=== PATIENT | female | born 1980 | race Caucasian/White ===

== ENCOUNTER → 2016-10-07 | Outpatient (CLI) | payer MEDICAID, MEDICARE ==
[~2016-10-07] MED LIST: *MAYHAVE; /CELE20CA OR; /ONDA4TA SL; /PANT40TA PO; ACET50TA PO; ACET65TA OR; ADVI200C5 PO; ALESSE PO; ALEV220T26 PO; ALLE25CA OR; BACTRIMDS PO; CELE20TA PO; CITALOPRAM PO; COLA100C2 OR; DEPA500T2 PO; FERR325T OR; FLAG500T PO; LEVO100T5 PO; LEVOTHYROXINE PO; MILKSUS OR; MULTIVIT PO; MYLI40DR OR; NORT25CA2 PO; PERC5TAB8 OR; PROTPAK PO; TRINTAB3 PO; VENTAER INH; VICO5TAB OR; VICODINE PO; VITA100066 PO; [UNRECOGNIZED DRUG - CODE] PO
--- NOTE | 2016-10-07 16:10 | REPMRS ---
Patient History The patient states she has not had a clinical breast exam in over a year. Patient is nulliparous. Family history of breast cancer in paternal aunt at age 50 or over and breast cancer in maternal grandmother at age 50 or over. Digital Mammo Diagnostic Bilateral: October 07, 2016 - Exam #: [id number] Bilateral CC and MLO view(s) were taken. Technologist: Samantha Rubio, Technologist Prior study comparison: August 18, 2015, left breast digital mammo diagnostic unilateral performed at [facility]. August 11, 2015, bilateral digital mammo screening bilat performed at [facility]. FINDINGS: The breast tissue is heterogeneously dense. This may lower the sensitivity of mammography. There is no evidence of cancer on this mammogram. No significant changes when compared with prior studies. ASSESSMENT: BI-RADS/ACR category 2 mammogram. Benign finding(s). Recommendation Routine screening mammogram of both breasts in 1 year (for women over age 40). This mammogram was interpreted with the aid of an FDA-approved computer-aided dectection system. Electronically Signed By: Bib Lambert MD 10/07/16 [id number]
== END ==
LOC: M RAD 10:23
PROVIDERS: ATTEND Internal Medicine
DX: Z80.3 Family history of malignant neoplasm of breast (principal); Z12.4 Encounter for screening for malignant neoplasm of cervix

== ENCOUNTER → 2017-10-09 | Outpatient (CLI) | payer MEDICARE, MEDICAID | LOC: M RAD 13:59 | DX: Z12.31 Encounter for screening mammogram for malignant neoplasm of breast (principal); Z80.3 Family history of malignant neoplasm of breast | CPT/HCPCS: 77067 ==

== ENCOUNTER → 2018-01-14 | Outpatient (REF) | payer MEDICARE, MEDICAID ==
[2018-01-14 13:27] LABS: FERRITIN 18 NG/ML (8-252); IRON (FE) 127 UG/DL (50-170); PERCENT SATURATION 39.1 % (13.2-45.0); TOTAL IRON BINDING CAPACITY 325 UG/DL (250-450)
[2018-01-14 13:33] LABS: VITAMIN B12 LEVEL 563 PG/ML (247-911)
== END ==
LOC: M LAB REF 12:54
DX: D64.9 Anemia, unspecified (principal)
CPT/HCPCS: 83550

== ENCOUNTER 2018-02-09 06:36 | Day surgery (SDC) | payer MEDICARE, MEDICAID ==
[~2018-02-09] VITALS: Ht 165.1 cm; Wt 48.1 kg
[~2018-02-09 06:36] MED LIST changes: +ALBU17IN2 INH; +LEVO25TA5 PO; +METO1TAB32 PO; +PEPT262T2 PO
[2018-02-09] MEDS ORDERED: NS 1,000 ML IV ONE (07:00)
[2018-02-09] MEDS ORDERED: LIDOCAINE 2% INJ 100 MG/5 ML SDV (FOR ANES.) As Ordered ONE (07:12)
[2018-02-09] MEDS ORDERED: PROPOFOL 200 MG/20 ML VIAL As Ordered ONE (07:12)
--- NOTE | 2018-02-09 08:35 | ROOR ---
Patient Name: Eugenie Carrasquillo Procedure Date: 02/09/2018 8:22 AM Date of : 1980 Age: 37 Room: [facility] Gender: Female Note Status: Finalized Procedure: Upper GI endoscopy Indications: Dysphagia Providers: Moy Rivas MD Referring MD: Evie Yung DO Requesting Provider: Medicines: Monitored Anesthesia Care Complications: No immediate complications. Procedure: Pre-Anesthesia Assessment: - The heart rate, respiratory rate, oxygen saturations, blood pressure, adequacy of pulmonary ventilation, and response to care were monitored throughout the procedure. The Endoscope was introduced through the mouth, and advanced to the second part of duodenum. The upper GI endoscopy was accomplished without difficulty. The patient tolerated the procedure well. Findings: The Z-line was regular and was found 35 cm from the incisors. A small hiatal hernia was present. No other significant abnormalities were identified in a careful examination of the stomach. The exam of the duodenum was otherwise normal. Impression: - Z-line regular, 35 cm from the incisors. - Small hiatal hernia. - No specimens collected. - The examination was otherwise normal. Recommendation: - Patient has a contact number available for emergencies. The signs and symptoms of potential delayed complications were discussed with the patient. Return to normal activities tomorrow. Written discharge instructions were provided to the patient. - [place] thick liquids diet. - Discharge patient to home. - Continue present medications. - Return to referring physician. - The findings and recommendations were discussed with the patient's family. Moy Rivas MD Moy Rivas MD 02/09/2018 8:35:19 AM This report has been signed electronically. Number of Addenda: 0 Note Initiated On: 02/09/2018 8:22 AM Estimated Blood Loss: Estimated blood loss: none.
[2018-02-09 08:50] VITALS: BP 117/67
== END 2018-02-09 09:08 | disposition home or self-care (01) ==
LOC: M OPP 06:36
PROVIDERS: ATTEND Internal Medicine Gastroenterology
DX: K44.9 Diaphragmatic hernia without obstruction or gangrene (principal); R13.10 Dysphagia, unspecified

== ENCOUNTER → 2018-04-13 | Outpatient (REF) | payer MEDICARE, MEDICAID ==
[~2018-04-13] MED LIST changes: +TRINTAB PO; -TRINTAB3 PO
== END ==
LOC: M LAB REF 16:11
PROVIDERS: ATTEND Internal Medicine
DX: R30.0 Dysuria (principal)

== ENCOUNTER → 2018-04-22 | Outpatient (REF) | payer MEDICARE, MEDICAID ==
[~2018-04-22] MED LIST changes: +DOXE10CA PO; +FLON1SPR NARES; +LEXA1TAB; +LEXA5TAB13; +MELA3TAB PO; +MELA3TAB49 PO; +PANT40TA3; +RIZA5TAB3; +WOMETAB4 PO
== END ==
LOC: M LAB REF 16:46
PROVIDERS: ATTEND Nurse Practitioner Family
DX: R30.0 Dysuria (principal)

== ENCOUNTER 2018-04-23 04:36 | Emergency (ER) | payer MEDICARE, MEDICAID ==
[~2018-04-23] VITALS: Ht 162.6 cm; Wt 48.2 kg
[~2018-04-23 04:36] MED LIST changes: -DOXE10CA PO; -FLON1SPR NARES; -LEXA1TAB; -LEXA5TAB13; -MELA3TAB PO; -MELA3TAB49 PO; -PANT40TA3; -RIZA5TAB3; -WOMETAB4 PO
[2018-04-23] MEDS ORDERED: methylPREDNISolone INJ 125 MG/2 ML VIAL (J2930) IV ONE (04:45)
[2018-04-23] MEDS ORDERED: FAMOTIDINE IV BAG 20 MG in APPROPRIATE DILUENT 1 EA IV ONE (05:15)
[2018-04-23] MEDS ORDERED: NS 1,000 ML IV ONE (05:15)
[2018-04-23] MEDS ORDERED: FAMOTIDINE INJ 20MG/2ML VIAL (S0028) IVP ONE (05:15)
[2018-04-23] MEDS ORDERED: diphenhydrAMINE INJ 50MG/ML VIAL (J1200) As Ordered ONE (06:17)
[2018-04-23] MEDS ORDERED: diphenhydrAMINE INJ 50MG/ML VIAL (J1200) IV ONE (06:30)
[2018-04-23] MEDS ORDERED: DOXEPIN 25 MG CAP PO ONE (07:45)
[2018-04-23 08:02] LABS: BASO % 0.2 % (0.0-1.0); EOS % 0.3 % (0.0-3.0); HEMATOCRIT 36.6 % (36.0-47.0); HEMOGLOBIN 11.9 g/dl (12.0-15.5); LYMPH % 14.1 % (24.0-44.0); MEAN CORPUSCULAR HEMOGLOBIN 20.6 pg (27.0-33.0); MEAN CORPUSCULAR HGB CONC 32.5 g/dl (32.0-36.5); MEAN CORPUSCULAR VOLUME 63.2 fl (80.0-96.0); MONO # 0.6 10^3/uL (0.0-0.8); MONO % 3.9 % (0.0-5.0); NEUTROPHILS # 11.7 10^3/uL (1.8-7.7); NEUTROPHILS % 81.2 % (36.0-66.0); PLATELET COUNT, AUTOMATED 219 10^3/uL (150-450); RED BLOOD COUNT 5.79 10^6/uL (4.00-5.40); WHITE BLOOD COUNT 14.4 10^3/uL (4.0-10.0)
[2018-04-23 08:18] LABS: ALBUMIN 3.8 GM/DL (3.2-5.2); ALT/SGPT 17 U/L (12-78); BILIRUBIN,DIRECT 0.2 MG/DL (0.0-0.2); BILIRUBIN,TOTAL 0.5 MG/DL (0.2-1.0); BLOOD UREA NITROGEN 12 MG/DL (7-18); C REACTIVE PROTEIN QUANTITATIV 1.23 MG/DL (0.00-0.30); CALCIUM LEVEL 8.4 MG/DL (8.5-10.1); CARBON DIOXIDE LEVEL 21 MEQ/L (21-32); CHLORIDE LEVEL 110 MEQ/L (98-107); CREATININE FOR GFR 0.64 MG/DL (0.55-1.30); FREE T4 1.03 NG/DL (0.76-1.46); GLOMERULAR FILTRATION RATE > 60.0 (>60); GLUCOSE, FASTING 117 MG/DL (70-100); POTASSIUM SERUM 3.9 MEQ/L (3.5-5.1); SODIUM LEVEL 140 MEQ/L (136-145); TOTAL PROTEIN 6.3 GM/DL (6.4-8.2)
[2018-04-23 09:04] LABS: ERYTHROCYTE SEDIMENTATION RATE 2 mm/hr (0-20)
[2018-04-23] MEDS ORDERED: PANT40TA3 (10:23)
[2018-04-23] MEDS ORDERED: RIZA5TAB3 (10:23)
[2018-04-23] MEDS ORDERED: LEXA1TAB (10:23)
[2018-04-23] MEDS ORDERED: WOMETAB4 PO (10:26)
[2018-04-23] MEDS ORDERED: MELA3TAB PO (10:26)
[2018-04-23] MEDS ORDERED: FLON1SPR NARES (10:26)
[2018-04-23] MEDS ORDERED: MELA3TAB49 PO (10:26)
[2018-04-23] MEDS ORDERED: LEXA5TAB13 (10:26)
[2018-04-23] MEDS ORDERED: DOXE10CA PO (11:08)
[2018-04-23 11:16] VITALS: BP 129/59
== END 2018-04-23 13:18 | disposition home or self-care (01) ==
LOC: EDBD 04:36 → M ED 04:36
DX: R21 Rash and other nonspecific skin eruption (principal); R06.02 Shortness of breath; R00.0 Tachycardia, unspecified; T37.8X5A Adverse effect of other specified systemic anti-infectives and antiparasitics, initial encounter; G80.9 Cerebral palsy, unspecified; E03.9 Hypothyroidism, unspecified; Z88.0 Allergy status to penicillin; Z88.2 Allergy status to sulfonamides; Z88.1 Allergy status to other antibiotic agents; Z79.899 Other long term (current) drug therapy
CPT/HCPCS: 80048; 80076; 83735; 84439; 84443; 85025; 85652; 86140; 93041; 94760; 96374; 96375; 99285; J1200; J2930

== ENCOUNTER 2018-06-30 17:15 | Emergency (ER) | payer MEDICAID, MEDICARE ==
[~2018-06-30] VITALS: Ht 134.6 cm; Wt 48.2 kg
[~2018-06-30 17:15] MED LIST changes: -/CELE20CA OR; -/ONDA4TA SL; -/PANT40TA PO; -ACET50TA PO; +CELE1CAP4 OR; +DOXE10CA PO; +FLON1SPR NARES; +LEXA1TAB; +LEXA5TAB13; +MAPA500T17 PO; +MELA3TAB PO; +MELA3TAB49 PO; +ONDA-1 SL; +PANT40TA3; +PROT1TAB2 PO; +RIZA5TAB3 PO; +WOMETAB4 PO
[2018-06-30] MEDS ORDERED: BUSP10TA PO (18:39)
[2018-06-30] MEDS ORDERED: FLUC150T PO (18:39)
[2018-06-30] MEDS ORDERED: NS 1,000 ML IV ONE (19:00)
[2018-06-30 19:38] LABS: BASO # 0.1 10^3/uL (0.0-0.2); BASO % 0.8 % (0.0-1.0); EOS # 0.3 10^3/uL (0.0-0.50); EOS % 3.7 % (0.0-3.0); HEMATOCRIT 35.6 % (36.0-47.0); HEMOGLOBIN 11.5 g/dl (12.0-15.5); LYMPH # 1.8 10^3/uL (1.5-4.5); MEAN CORPUSCULAR HEMOGLOBIN 19.9 pg (27.0-33.0); MEAN CORPUSCULAR HGB CONC 32.3 g/dl (32.0-36.5); MEAN CORPUSCULAR VOLUME 61.7 fl (80.0-96.0); MONO # 0.5 10^3/uL (0.0-0.8); MONO % 6.3 % (0.0-5.0); NEUTROPHILS # 4.8 10^3/uL (1.8-7.7); NEUTROPHILS % 64.9 % (36.0-66.0); PLATELET COUNT, AUTOMATED 242 10^3/uL (150-450); RED BLOOD COUNT 5.77 10^6/uL (4.00-5.40); WHITE BLOOD COUNT 7.3 10^3/uL (4.0-10.0)
[2018-06-30 20:02] LABS: BLOOD UREA NITROGEN 5 MG/DL (7-18); CREATININE FOR GFR 0.59 MG/DL (0.55-1.30); GLUCOSE, FASTING 91 MG/DL (70-100)
[2018-06-30 20:03] LABS: ALBUMIN 4.1 GM/DL (3.2-5.2); ALT/SGPT 14 U/L (12-78); BILIRUBIN,DIRECT 0.2 MG/DL (0.0-0.2); BILIRUBIN,TOTAL 0.5 MG/DL (0.2-1.0); CALCIUM LEVEL 8.7 MG/DL (8.5-10.1); CARBON DIOXIDE LEVEL 26 MEQ/L (21-32); CHLORIDE LEVEL 109 MEQ/L (98-107); GLOMERULAR FILTRATION RATE > 60.0 (>60); LIPASE 90 U/L (73-393); POTASSIUM SERUM 3.9 MEQ/L (3.5-5.1); SODIUM LEVEL 140 MEQ/L (136-145); TOTAL PROTEIN 6.8 GM/DL (6.4-8.2)
--- NOTE | 2018-06-30 21:25 | REPVR ---
EXAM: US Retroperitoneal Limited, Kidneys EXAM DATE/TIME: 06/30/2018 7:52 PM CLINICAL HISTORY: 37 years old, female; Other: Flak pain RT; Additional info: R flank pain TECHNIQUE: Imaging protocol: Real-time ultrasound of the retroperitoneum with image documentation. Examination was focused on the kidneys. COMPARISON: RENAL US 06/30/2013 9:08 AM FINDINGS: Right kidney: The right kidney measures 10.6 x 3.3 x 4.4 cm. The is an echogenic, avascular mass in the lower pole measuring 2.2 x 1.4 x 1.6 cm. A rounded hypoechoic mass in the upper pole noted measuring 0.5 x 0.5 x 0.5 cm. Internal echoes are present. Posterior wall enhancement is seen. An echogenic structure in the hepato- renal space corresponds to a surgical clip noted on CAT scan. No hydronephrosis and the right kidney Left kidney: The left kidney measures 10.9 x 3.3 x 3 cm. No hydronephrosis Bladder: The contour of the bladder is lobulated. Color Doppler examination of the bladder base demonstrates bilateral ureteral jets. IMPRESSION: 1. 2.2 cm echogenic avascular mass in the lower pole. This is increased in size since the previous CT scan in 2014 and suggests the presence of an angiomyolipoma. 2. 5 mm complex cyst in the upper pole of the right kidney. 3. Normal ultrasound of the left kidney. Electronically signed by: Iris Peña On 06/30/2018 21:25:23 PM
[2018-06-30 21:57] LABS: CHLAMYDIA DNA AMPLIFICATION NEGATIVE (NEGATIVE); GC DNA AMPLIFICATION NEGATIVE (NEGATIVE)
[2018-06-30] MEDS ORDERED: FOSFOMYCIN TROMETHAMINE 3 GM POWDER PACKET (MONUROL) PO ONE (22:15)
[2018-06-30 22:43] VITALS: BP 100/58
--- NOTE | 2018-07-07 07:44 | ED PDOC ---
Post-Departure Follow-Up dr carvajal faxed formal report of renal us for fu Pam Morton MD July 07, 2018 07:44
== END 2018-06-30 22:56 | disposition home or self-care (01) ==
LOC: M ED 17:15
DX: N39.0 Urinary tract infection, site not specified (principal); N89.8 Other specified noninflammatory disorders of vagina; N76.0 Acute vaginitis; D50.9 Iron deficiency anemia, unspecified; N28.1 Cyst of kidney, acquired; D30.00 Benign neoplasm of unspecified kidney; G80.9 Cerebral palsy, unspecified; K58.0 Irritable bowel syndrome with diarrhea; K21.9 Gastro-esophageal reflux disease without esophagitis; G43.909 Migraine, unspecified, not intractable, without status migrainosus; E28.2 Polycystic ovarian syndrome; Z87.440 Personal history of urinary (tract) infections; Z87.59 Personal history of other complications of pregnancy, childbirth and the puerperium; Z79.899 Other long term (current) drug therapy; Z88.0 Allergy status to penicillin; Z88.8 Allergy status to other drugs, medicaments and biological substances

== ENCOUNTER → 2018-08-11 | Outpatient (CLI) | payer MEDICARE ==
[~2018-08-11] MED LIST changes: +BUSP10TA PO; +FLUC150T PO
[2018-08-11 12:47] LABS: BASO # 0.1 10^3/uL (0.0-0.2); BASO % 0.8 % (0.0-1.0); EOS # 0.1 10^3/uL (0.0-0.50); EOS % 1.8 % (0.0-3.0); HEMATOCRIT 36.7 % (36.0-47.0); HEMOGLOBIN 11.8 g/dl (12.0-15.5); LYMPH # 1.3 10^3/uL (1.5-4.5); LYMPH % 21.5 % (24.0-44.0); MEAN CORPUSCULAR HEMOGLOBIN 19.9 pg (27.0-33.0); MEAN CORPUSCULAR HGB CONC 32.2 g/dl (32.0-36.5); MEAN CORPUSCULAR VOLUME 61.9 fl (80.0-96.0); MONO # 0.4 10^3/uL (0.0-0.8); MONO % 5.6 % (0.0-5.0); NEUTROPHILS # 4.4 10^3/uL (1.8-7.7); RED BLOOD COUNT 5.93 10^6/uL (4.00-5.40); WHITE BLOOD COUNT 6.2 10^3/uL (4.0-10.0)
[2018-08-11 13:39] LABS: ALBUMIN 3.9 GM/DL (3.2-5.2); ALT/SGPT 19 U/L (12-78); BILIRUBIN,TOTAL 0.8 MG/DL (0.2-1.0); BLOOD UREA NITROGEN 12 MG/DL (7-18); CALCIUM LEVEL 9.1 MG/DL (8.5-10.1); CARBON DIOXIDE LEVEL 24 MEQ/L (21-32); CHLORIDE LEVEL 109 MEQ/L (98-107); CREATININE FOR GFR 0.54 MG/DL (0.55-1.30); GLOMERULAR FILTRATION RATE > 60.0 (>60); GLUCOSE, FASTING 85 MG/DL (70-100); POTASSIUM SERUM 4.1 MEQ/L (3.5-5.1); RHEUMATOID FACTOR QUANT < 10.0 IU/ML (<15.0); SODIUM LEVEL 141 MEQ/L (136-145); TOTAL 25(OH) VITAMIN D 15.1 NG/ML (30.0-100.0)
[2018-08-11 13:44] LABS: ERYTHROCYTE SEDIMENTATION RATE 1 mm/hr (0-20)
[2018-08-12 14:47] LABS: ANTINUCLEAR ANTIBODIES DIRECT Negative (Negative)
== END ==
LOC: M LAB 12:02
PROVIDERS: ATTEND Psychiatry & Neurology Neurology
DX: R51 Headache (principal); R31.0 Gross hematuria
CPT/HCPCS: 36415; 51798; 80053; 81001; 82306; 84443; 85025; 85652; 86038; 86431; 87086; G0463

== ENCOUNTER → 2018-08-11 | Outpatient (REF) | payer MEDICARE, MEDICAID ==
[2018-08-11 20:23] LABS: APPEARANCE, URINE CLEAR (CLEAR); BACTERIA, URINE AUTO NEGATIVE (NEGATIVE); BILIRUBIN, URINE AUTO NEGATIVE (NEGATIVE); BLOOD, URINE BLOOD NEGATIVE (NEGATIVE); COLOR, URINE YELLOW (YELLOW); GLUCOSE, URINE (UA) AUTO NEGATIVE (NEGATIVE); KETONE, URINE AUTO TRACE mg/dL (NEGATIVE); LEUKOCYTE ESTERASE, URINE AUTO TRACE (NEGATIVE); MUCUS, URINE SMALL (NEGATIVE); NITRITE, URINE AUTO NEGATIVE (NEGATIVE); PROTEIN, URINE AUTO NEGATIVE (NEGATIVE); RBC, URINE AUTO 1 /HPF (0-3); SPECIFIC GRAVITY URINE AUTO 1.011 (1.002-1.035); SQUAMOUS EPITHELIAL CELL UR AU 5 /HPF (0-6); UROBILINOGEN, URINE AUTO 0.2 mg/dL (0.0-2.0); WBC, URINE AUTO 4 /HPF (0-3)
== END ==
LOC: M SMT 17:04
PROVIDERS: ATTEND Nurse Practitioner Family
DX: N39.0 Urinary tract infection, site not specified (principal)

== ENCOUNTER → 2018-09-12 | Outpatient (CLI) | payer MEDICAID, MEDICARE ==
[2018-09-12 11:29] LABS: AMORPHOUS SEDIMENT SMALL (NEGATIVE); APPEARANCE, URINE CLOUDY (CLEAR); BACTERIA, URINE AUTO 3+ (NEGATIVE); BILIRUBIN, URINE AUTO NEGATIVE (NEGATIVE); BLOOD, URINE BLOOD 2+ (NEGATIVE); COLOR, URINE YELLOW (YELLOW); GLUCOSE, URINE (UA) AUTO NEGATIVE (NEGATIVE); KETONE, URINE AUTO TRACE mg/dL (NEGATIVE); LEUKOCYTE ESTERASE, URINE AUTO 3+ (NEGATIVE); MUCUS, URINE SMALL (NEGATIVE); NITRITE, URINE AUTO POSITIVE (NEGATIVE); PROTEIN, URINE AUTO 1+ mg/dL (NEGATIVE); RBC, URINE AUTO 17 /HPF (0-3); SPECIFIC GRAVITY URINE AUTO 1.004 (1.002-1.035); SQUAMOUS EPITHELIAL CELL UR AU 5 /HPF (0-6); TRANSITIONAL EPITHELIAL AUTO 1 /HPF; UROBILINOGEN, URINE AUTO 0.2 mg/dL (0.0-2.0); WBC, URINE AUTO TNTC /HPF (0-3)
== END ==
LOC: M LAB 10:47
PROVIDERS: ATTEND Student in an Organized Health Care Education/Training Program
DX: R30.0 Dysuria (principal)

== ENCOUNTER 2018-12-21 09:18 | Outpatient (RCR) | payer MEDICARE ==
[~2018-12-21 09:18] MED LIST changes: -ALBU17IN2 INH; -MELA3TAB PO; +MELA3TAB63 PO; +PROV108A INH; -RIZA5TAB3 PO; +RIZA5TAB52 PO
== END 2018-12-24 ==
LOC: M PT 09:18
PROVIDERS: ATTEND Psychiatry & Neurology Neurology
DX: Z51.89 Encounter for other specified aftercare (principal); M47.22 Other spondylosis with radiculopathy, cervical region

== ENCOUNTER 2019-01-19 15:17 | Outpatient (RCR) | payer MEDICARE | END 2019-01-23 | LOC: M PT 15:17 | PROVIDERS: ATTEND Psychiatry & Neurology Neurology | DX: Z51.89 Encounter for other specified aftercare (principal); M47.22 Other spondylosis with radiculopathy, cervical region ==

== ENCOUNTER 2019-02-08 11:00 | Outpatient (RCR) | payer MEDICARE, MEDICAID | END 2019-02-23 | LOC: M PT 11:00 | PROVIDERS: ATTEND Psychiatry & Neurology Neurology | DX: M54.2 Cervicalgia (principal); G83.9 Paralytic syndrome, unspecified ==

== ENCOUNTER → 2019-02-16 | Outpatient (REF) | payer MEDICARE, MEDICAID ==
[2019-02-16 14:31] LABS: FERRITIN 12 NG/ML (8-252); IRON (FE) 80 UG/DL (50-170); PERCENT SATURATION 29.2 % (13.2-45.0); TOTAL IRON BINDING CAPACITY 274 UG/DL (250-450)
== END ==
LOC: M LAB REF 13:30
PROVIDERS: ATTEND Internal Medicine
DX: D64.9 Anemia, unspecified (principal)

== ENCOUNTER → 2019-07-16 | Outpatient (CLI) | payer MEDICARE, MEDICAID ==
[2019-07-16 16:40] LABS: FREE T4 1.25 NG/DL (0.76-1.46); THYROID STIMULATING HORMONE 2.9 uIU/ML (0.358-3.740)
== END ==
LOC: M LAB 15:41
PROVIDERS: ATTEND Internal Medicine Endocrinology, Diabetes & Metabolism
DX: E04.2 Nontoxic multinodular goiter (principal)

== ENCOUNTER → 2019-07-26 | Outpatient (REF) | payer MEDICARE, MEDICAID ==
[2019-07-27 11:25] LABS: PERCENT SATURATION 36.5 % (13.2-45.0)
== END ==
LOC: M LAB REF 10:37
PROVIDERS: ATTEND Internal Medicine
DX: D64.9 Anemia, unspecified (principal)

== ENCOUNTER 2019-10-22 08:45 | Outpatient (RCR) | payer MEDICARE, MEDICAID ==
[~2019-10-22 08:45] MED LIST changes: +PANT40TA29; -PANT40TA3
== END 2019-10-25 | disposition home or self-care (01) ==
LOC: M PT 08:45
PROVIDERS: ATTEND Physical Medicine & Rehabilitation
DX: G80.1 Spastic diplegic cerebral palsy (principal)

== ENCOUNTER → 2019-11-18 | Outpatient (REF) | payer MEDICARE, MEDICAID ==
[2019-11-18 14:47] LABS: AMORPHOUS SEDIMENT SMALL (NEGATIVE); APPEARANCE, URINE CLOUDY (CLEAR); BACTERIA, URINE AUTO 2+ (NEGATIVE); BILIRUBIN, URINE AUTO NEGATIVE (NEGATIVE); BLOOD, URINE BLOOD NEGATIVE (NEGATIVE); COLOR, URINE YELLOW (YELLOW); GLUCOSE, URINE (UA) AUTO NEGATIVE (NEGATIVE); KETONE, URINE AUTO NEGATIVE (NEGATIVE); LEUKOCYTE ESTERASE, URINE AUTO 3+ (NEGATIVE); MUCUS, URINE SMALL (NEGATIVE); NITRITE, URINE AUTO NEGATIVE (NEGATIVE); PROTEIN, URINE AUTO 1+ mg/dL (NEGATIVE); RBC, URINE AUTO 2 /HPF (0-3); SPECIFIC GRAVITY URINE AUTO 1.017 (1.002-1.035); SQUAMOUS EPITHELIAL CELL UR AU 41 /HPF (0-6); UROBILINOGEN, URINE AUTO 0.2 mg/dL (0.0-2.0); WBC, URINE AUTO 3 /HPF (0-3)
== END ==
LOC: M LAB REF 13:59
PROVIDERS: ATTEND Student in an Organized Health Care Education/Training Program
DX: R30.0 Dysuria (principal)

== ENCOUNTER → 2019-11-24 | Outpatient (RCR) | payer MEDICARE, MEDICAID | LOC: M OT 10-29 08:15 → M PT 10-29 08:17 → M OT 11-03 10:45 → M PT 11-12 08:22 → M OT 11-17 12:52 → M PT 11-17 13:00 → M OT 12:45 | PROVIDERS: ATTEND Physical Medicine & Rehabilitation | DX: G80.0 Spastic quadriplegic cerebral palsy (principal); M25.462 Effusion, left knee; M25.461 Effusion, right knee ==

== ENCOUNTER → 2019-12-02 | Outpatient (REF) | payer MEDICARE, MEDICAID ==
[2019-12-02 13:23] LABS: APPEARANCE, URINE HAZY (CLEAR); BACTERIA, URINE AUTO 1+ (NEGATIVE); BILIRUBIN, URINE AUTO NEGATIVE (NEGATIVE); BLOOD, URINE BLOOD NEGATIVE (NEGATIVE); COLOR, URINE YELLOW (YELLOW); GLUCOSE, URINE (UA) AUTO NEGATIVE (NEGATIVE); KETONE, URINE AUTO NEGATIVE (NEGATIVE); LEUKOCYTE ESTERASE, URINE AUTO 2+ (NEGATIVE); NITRITE, URINE AUTO NEGATIVE (NEGATIVE); PROTEIN, URINE AUTO NEGATIVE (NEGATIVE); RBC, URINE AUTO 0 /HPF (0-3); SPECIFIC GRAVITY URINE AUTO 1.012 (1.002-1.035); SQUAMOUS EPITHELIAL CELL UR AU 4 /HPF (0-6); UROBILINOGEN, URINE AUTO 0.2 mg/dL (0.0-2.0); WBC, URINE AUTO 1 /HPF (0-3)
== END ==
LOC: M LAB REF 12:44
PROVIDERS: ATTEND Student in an Organized Health Care Education/Training Program
DX: R39.9 Unspecified symptoms and signs involving the genitourinary system (principal)

== ENCOUNTER → 2019-12-07 | Outpatient (REF) | payer MEDICARE, MEDICAID ==
[2019-12-08 12:35] LABS: APPEARANCE, URINE HAZY (CLEAR); BACTERIA, URINE AUTO NEGATIVE (NEGATIVE); BILIRUBIN, URINE AUTO NEGATIVE (NEGATIVE); BLOOD, URINE BLOOD NEGATIVE (NEGATIVE); CALCIUM OXALATE CRYSTALS MODERATE; COLOR, URINE YELLOW (YELLOW); GLUCOSE, URINE (UA) AUTO NEGATIVE (NEGATIVE); KETONE, URINE AUTO NEGATIVE (NEGATIVE); LEUKOCYTE ESTERASE, URINE AUTO TRACE (NEGATIVE); MUCUS, URINE SMALL (NEGATIVE); NITRITE, URINE AUTO NEGATIVE (NEGATIVE); PROTEIN, URINE AUTO NEGATIVE (NEGATIVE); RBC, URINE AUTO 1 /HPF (0-3); SPECIFIC GRAVITY URINE AUTO 1.018 (1.002-1.035); SQUAMOUS EPITHELIAL CELL UR AU 1 /HPF (0-6); UROBILINOGEN, URINE AUTO 0.2 mg/dL (0.0-2.0); WBC, URINE AUTO 3 /HPF (0-3)
== END ==
LOC: M LAB REF 11:54
PROVIDERS: ATTEND Student in an Organized Health Care Education/Training Program
DX: R39.9 Unspecified symptoms and signs involving the genitourinary system (principal)

== ENCOUNTER 2019-12-15 13:45 | Outpatient (RCR) | payer MEDICARE, MEDICAID | END 2019-12-25 | LOC: M PT 13:45 | PROVIDERS: ATTEND Physical Medicine & Rehabilitation | DX: Z47.89 Encounter for other orthopedic aftercare (principal); G80.0 Spastic quadriplegic cerebral palsy; M24.551 Contracture, right hip; M25.562 Pain in left knee; M24.561 Contracture, right knee; M24.552 Contracture, left hip ==

== ENCOUNTER → 2019-12-24 | Outpatient (CLI) | payer MEDICARE, MEDICAID ==
--- NOTE | 2019-12-24 09:18 | REP ---
INDICATION: INCOMPLETE EMPYTING OF BLADDER MAIN REG. COMPARISON: 06/30/2018. TECHNIQUE: Real-time sonographic evaluation of the kidneys is performed. FINDINGS: Renal cortical echogenicity pattern is normal bilaterally and contours are smooth. There is no evidence of hydronephrosis or calculus in either kidney. A hyperechoic nodule is seen in the lower pole of the right kidney 2.5 x 1.7 x 2.0 cm essentially unchanged compared to the prior exam. There is a 7 mm cyst in the mid right kidney. The right kidney measures 9.4 x 4.5 x 3.5 cm. Left renal dimensions are 10.5 x 4.9 x 3.6 cm. The urinary bladder contains mild debris and measures 10.6 x 8.6 x 7.0 cm. At the dome of the bladder a small cystic-appearing area along the outer wall appears to connect to the lumen of the bladder and probably represents a small diverticulum measuring 9 x 8 x 14 mm. IMPRESSION: No hydronephrosis. Stable angiomyolipoma lower pole right kidney. Mild debris in the bladder with suspected small diverticulum at the dome of the bladder. <Electronically signed by Bib Lambert > 12/24/19 [id number]
== END ==
LOC: M RAD 08:01
PROVIDERS: ATTEND Student in an Organized Health Care Education/Training Program
DX: D17.71 Benign lipomatous neoplasm of kidney (principal); R33.9 Retention of urine, unspecified; N39.0 Urinary tract infection, site not specified; R31.9 Hematuria, unspecified

== ENCOUNTER → 2019-12-31 | Outpatient (CLI) | payer MEDICARE, MEDICAID ==
--- NOTE | 2019-12-31 10:26 | REP ---
INDICATION: PELVIC PAIN FILE ROOM. COMPARISON: 03/07/2015. TECHNIQUE: Transabdominal scanning was performed. The patient declined transvaginal ultrasound exam. FINDINGS: The patient has had a prior hysterectomy. No free fluid is seen in the cul-de-sac. The bladder measures 7.1 x 6.4 x 8.6 cm. The right ovary has dimensions of 3.6 x 1.5 x 2.1 cm cm. It's Doppler flow is normal with a resistive index of 0.40. The left ovary dimensions are normal as well at 2.9 x 2.0 x 2.8 cm cm. It's Doppler flow was normal with resistive index of 0.57. There is no adnexal mass identified. IMPRESSION: Status post hysterectomy. No mass or free fluid. Ovaries appear normal. <Electronically signed by Bib Lambert > 12/31/19 1023
== END ==
LOC: M RAD 08:39
PROVIDERS: ATTEND Internal Medicine
DX: R10.2 Pelvic and perineal pain (principal)

== ENCOUNTER → 2020-01-14 | Outpatient (REF) | payer MEDICARE, MEDICAID | LOC: M LAB REF 14:49 | PROVIDERS: ATTEND Student in an Organized Health Care Education/Training Program | DX: R39.9 Unspecified symptoms and signs involving the genitourinary system (principal) ==

== ENCOUNTER 2021-07-29 14:57 | Inpatient (IN) | payer MEDICAID, MEDICARE, OTHER ==
[~2021-07-29] VITALS: Ht 162.6 cm; Wt 47.5 kg
[~2021-07-29 14:57] MED LIST changes: -FLUC150T PO; +FLUC150T9 PO; -MELA3TAB63 PO; +MELA3TAB70 PO
[2021-07-29] MEDS ORDERED: ONDANSETRON 4MG/2ML VIAL IV ONE (16:05)
[2021-07-29] MEDS ORDERED: NS 1,000 ML IV ONE ×2 (16:05→16:35)
[2021-07-29 16:23] LABS: BASO % 0.2 % (0.0-1.0); HEMATOCRIT 45.8 % (36.0-47.0); HEMOGLOBIN 14.6 g/dl (12.0-15.5); LYMPH # 0.7 10^3/uL (1.5-5.0); LYMPH % 3.5 % (24.0-44.0); MEAN CORPUSCULAR HEMOGLOBIN 20.1 pg (27.0-33.0); MEAN CORPUSCULAR HGB CONC 31.9 g/dl (32.0-36.5); MEAN CORPUSCULAR VOLUME 63.2 fl (80.0-96.0); MONO # 0.4 10^3/uL (0.0-0.8); NEUTROPHILS # 18.1 10^3/uL (1.5-8.5); NEUTROPHILS % 93.4 % (36.0-66.0); PLATELET COUNT, AUTOMATED 456 10^3/uL (150-450); RED BLOOD COUNT 7.25 10^6/uL (4.00-5.40); WHITE BLOOD COUNT 19.3 10^3/uL (4.0-10.0)
[2021-07-29 16:32] LABS: INR 1.22; PROTHROMBIN TIME 15.8 SECONDS (12.7-14.5)
[2021-07-29 16:33] LABS: PARTIAL THROMBOPLASTIN TIME 31.5 SECONDS (25.9-37.0)
[2021-07-29 16:43] LABS: ALBUMIN 5.3 GM/DL (3.2-5.2); ALT/SGPT 20 U/L (12-78); AMYLASE 145 U/L (25-115); BILIRUBIN,DIRECT 0.4 MG/DL (0.0-0.2); BILIRUBIN,TOTAL 1.3 MG/DL (0.2-1.0); BLOOD UREA NITROGEN 22 MG/DL (7-18); CALCIUM LEVEL 10.7 MG/DL (8.5-10.1); CARBON DIOXIDE LEVEL 9 MEQ/L (21-32); CHLORIDE LEVEL 116 MEQ/L (98-107); CREATININE FOR GFR 1.07 MG/DL (0.55-1.30); GLOMERULAR FILTRATION RATE > 60.0 (>58); GLUCOSE, FASTING 153 MG/DL (70-100); LIPASE 195 U/L (73-393); POTASSIUM SERUM 4.2 MEQ/L (3.5-5.1); SODIUM LEVEL 142 MEQ/L (136-145); TOTAL PROTEIN 9.1 GM/DL (6.4-8.2)
[2021-07-29] MEDS ORDERED: ISOVUE-370 76% 100ML VIAL As Ordered ONE (16:48)
[2021-07-29] MEDS ORDERED: LevoFLOXacin IV 750 MG in IV 1 EA IV ONE (16:50)
[2021-07-29 17:12] LABS: RSV AMPLIFICATION NEGATIVE (NEGATIVE)
[2021-07-29 17:38] LABS: MAGNESIUM LEVEL 1.9 MG/DL (1.8-2.4)
[2021-07-29] MEDS ORDERED: LR 1,000 ML IV SCH (19:25)
[2021-07-29] MEDS ORDERED: ONDANSETRON 4MG/2ML VIAL IV PRN (19:25)
[2021-07-29] MEDS ORDERED: LR 1,000 ML IV ONE (19:25)
[2021-07-29 20:32] LABS: FREE T4 1.14 NG/DL (0.76-1.46); THYROID STIMULATING HORMONE 0.936 uIU/ML (0.358-3.740)
[2021-07-29] MEDS ORDERED: ERGO500029 PO (21:22)
[2021-07-29] MEDS ORDERED: BUSP10TA PO (21:22)
[2021-07-29] MEDS ORDERED: PANT-23 PO (21:22)
[2021-07-29] MEDS ORDERED: MONT10TA97 PO (21:22)
[2021-07-29] MEDS ORDERED: CELE1CAP7 PO (21:22)
[2021-07-29] MEDS ORDERED: TIZA2TA PO (21:22)
[2021-07-29] MEDS ORDERED: HYDR-643 PO (21:22)
[2021-07-29] MEDS ORDERED: GABA-282 PO ×2 (21:22)
[2021-07-29] MEDS ORDERED: OMEP-173 PO (21:22)
[2021-07-29] MEDS ORDERED: AIMO70IN2 INJ (21:22)
[2021-07-29] MEDS ORDERED: HOME MED LIST COMPLETE! XX SCH (21:25)
[2021-07-29] MEDS: PROCHLORPERAZINE 10MG/2ML VIAL (J0780 PER 1) IV PRN (22:15)
[2021-07-30] MEDS ORDERED: LACTATED RINGER'S 1000 ML IV ONE (04:00)
[2021-07-30 06:44] LABS: VENOUS BASE EXCESS -8.9 (-2.0-2.0); VENOUS HCO3 15.4 MEQ/L (23.0-27.0); VENOUS O2 SATURATION 93.4 % (60.0-80.0); VENOUS PARTIAL PRESSURE CO2 27.8 mmHg (38.0-50.0); VENOUS PARTIAL PRESSURE O2 71.3 mmHg (30.0-50.0); VENOUS PH 7.361 UNITS (7.330-7.430); VENOUS STANDARD HCO3 17.2 MEQ/L; VENOUS TOTAL CO2 16.2 MEQ/L (24.0-28.0)
[2021-07-30 07:16] LABS: BASO % 0.1 % (0.0-1.0); HEMATOCRIT 27.4 % (36.0-47.0); LYMPH % 10.1 % (24.0-44.0); MEAN CORPUSCULAR HEMOGLOBIN 20.4 pg (27.0-33.0); MEAN CORPUSCULAR HGB CONC 32.5 g/dl (32.0-36.5); MEAN CORPUSCULAR VOLUME 62.8 fl (80.0-96.0); MONO # 0.8 10^3/uL (0.0-0.8); MONO % 7.5 % (2.0-8.0); NEUTROPHILS # 8.4 10^3/uL (1.5-8.5); NEUTROPHILS % 81.6 % (36.0-66.0); RED BLOOD COUNT 4.36 10^6/uL (4.00-5.40); WHITE BLOOD COUNT 10.2 10^3/uL (4.0-10.0)
[2021-07-30 07:21] LABS: HEMOGLOBIN 8.9 g/dl (12.0-15.5); PLATELET COUNT, AUTOMATED 226 10^3/uL (150-450)
[2021-07-30 07:31] LABS: BLOOD UREA NITROGEN 11 MG/DL (7-18); CALCIUM LEVEL 8.9 MG/DL (8.5-10.1); CARBON DIOXIDE LEVEL 18 MEQ/L (21-32); CHLORIDE LEVEL 122 MEQ/L (98-107); CREATININE FOR GFR 0.59 MG/DL (0.55-1.30); GLOMERULAR FILTRATION RATE > 60.0 (>58); GLUCOSE, FASTING 103 MG/DL (70-100); MAGNESIUM LEVEL 1.8 MG/DL (1.8-2.4); POTASSIUM SERUM 3.5 MEQ/L (3.5-5.1); SODIUM LEVEL 150 MEQ/L (136-145)
[2021-07-30] MEDS: LEVOTHYROXINE 25MCG TABLET (0.025MG) PO SCH (07:53)
[2021-07-30] MEDS: PROCHLORPERAZINE 10MG/2ML VIAL (J0780 PER 1) IV PRN (07:55)
[2021-07-30] MEDS: metroNIDAZOLE 500 MG in IV 1 EA IV SCH ×2 (08:00→18:10)
[2021-07-30] MEDS ORDERED: PANTOPRAZOLE 40MG TAB (PROTONIX) PO SCH (09:00)
[2021-07-30] MEDS: busPIRone 10 MG TAB PO SCH (09:00)
[2021-07-30] MEDS: D5W/0.45% SODIUM CHLORIDE 1,000 ML IV SCH ×2 (09:20→19:20)
[2021-07-30 10:19] LABS: VENOUS HCO3 18.4 MEQ/L (23.0-27.0); VENOUS O2 SATURATION 98.5 % (60.0-80.0); VENOUS PARTIAL PRESSURE O2 135.9 mmHg (30.0-50.0); VENOUS PH 7.377 UNITS (7.330-7.430); VENOUS STANDARD HCO3 19.5 MEQ/L; VENOUS TOTAL CO2 19.4 MEQ/L (24.0-28.0)
[2021-07-30 11:10] LABS: BILIRUBIN,DIRECT 0.3 MG/DL (0.0-0.2); BILIRUBIN,TOTAL 1.2 MG/DL (0.2-1.0); TOTAL PROTEIN 5.6 GM/DL (6.4-8.2)
[2021-07-30 11:10] LABS: BASO % 0.1 % (0.0-1.0); HEMATOCRIT 26.4 % (36.0-47.0); HEMOGLOBIN 8.7 g/dl (12.0-15.5); LYMPH # 1.2 10^3/uL (1.5-5.0); LYMPH % 11.8 % (24.0-44.0); MEAN CORPUSCULAR HEMOGLOBIN 20.5 pg (27.0-33.0); MEAN CORPUSCULAR VOLUME 62.3 fl (80.0-96.0); MONO # 0.8 10^3/uL (0.0-0.8); MONO % 7.6 % (2.0-8.0); NEUTROPHILS # 8.1 10^3/uL (1.5-8.5); PLATELET COUNT, AUTOMATED 213 10^3/uL (150-450); RED BLOOD COUNT 4.24 10^6/uL (4.00-5.40); WHITE BLOOD COUNT 10.1 10^3/uL (4.0-10.0)
[2021-07-30 11:37] LABS: ALBUMIN 3.1 GM/DL (3.2-5.2); ALT/SGPT 13 U/L (12-78); BILIRUBIN,TOTAL 1.2 MG/DL (0.2-1.0); BLOOD UREA NITROGEN 10 MG/DL (7-18); CALCIUM LEVEL 9.1 MG/DL (8.5-10.1); CARBON DIOXIDE LEVEL 20 MEQ/L (21-32); CHLORIDE LEVEL 122 MEQ/L (98-107); CREATININE FOR GFR 0.51 MG/DL (0.55-1.30); GLOMERULAR FILTRATION RATE > 60.0 (>58); GLUCOSE, FASTING 101 MG/DL (70-100); MAGNESIUM LEVEL 1.9 MG/DL (1.8-2.4); POTASSIUM SERUM 3.1 MEQ/L (3.5-5.1); SODIUM LEVEL 150 MEQ/L (136-145); TOTAL PROTEIN 5.1 GM/DL (6.4-8.2)
[2021-07-30] MEDS ORDERED: POTASSIUM CHLORIDE 10MEQ SR TABLET PO ONE (12:00)
[2021-07-30] MEDS: LACTOBACILLUS ACIDOPHILUS CAP (BACID) PO SCH (12:02)
[2021-07-30] MEDS: GABAPENTIN 300 MG CAP PO SCH ×2 (12:03→20:44)
[2021-07-30] MEDS: CelecoXIB (CeleBREX) 100 MG CAP PO SCH (12:03)
[2021-07-30] MEDS: ENOXAPARIN 30MG/0.3ML SYRINGE (J1650 PER 10MG) SC SCH (12:40)
[2021-07-30] MEDS: THIAMINE 200MG 2ML VIAL IV SCH (12:40)
[2021-07-30] MEDS: SCOPOLAMINE 1MG TRANSDERMAL PATCH TOP SCH (12:40)
[2021-07-30 13:59] LABS: PHOSPHORUS LEVEL 1.6 MG/DL (2.5-4.9)
[2021-07-30] MEDS: cefTRIAXone SOD 1 GM in D5W MINI-BAG PLUS 50 ML IV SCH (15:56)
[2021-07-30] MEDS: NEUTRA-PHOS 1.5 GM PACKET PO SCH ×2 (16:00→20:44)
[2021-07-30 16:12] LABS: BLOOD UREA NITROGEN 9 MG/DL (7-18); CARBON DIOXIDE LEVEL 20 MEQ/L (21-32); CHLORIDE LEVEL 120 MEQ/L (98-107); GLOMERULAR FILTRATION RATE > 60.0 (>58); GLUCOSE, FASTING 96 MG/DL (70-100); MAGNESIUM LEVEL 1.8 MG/DL (1.8-2.4); SODIUM LEVEL 148 MEQ/L (136-145)
[2021-07-30] MEDS ORDERED: POTASSIUM PHOSPHATE INJ 20 MMOL in D5W 250 ML IV ONE (17:00)
[2021-07-30] MEDS ORDERED: LevoFLOXacin IV 750 MG in IV 1 EA IV SCH (18:00)
[2021-07-30 18:45] VITALS: BP 111/65
[2021-07-30] MEDS: KCL 10MEQ/100ML SWI (KRUN) 10 MEQ in IV 1 EA IV SCH ×4 (18:58→22:35)
[2021-07-30] MEDS: PANTOPRAZOLE 40MG VIAL IV SCH (19:58)
[2021-07-30] MEDS ORDERED: LORazepam 2 MG/ML VIAL IV ONE (20:00)
[2021-07-30] MEDS ORDERED: PROCHLORPERAZINE 10MG/2ML VIAL (J0780 PER 1) IV PRN (20:10)
[2021-07-30 20:20] LABS: BASO % 0.2 % (0.0-1.0); HEMATOCRIT 26.5 % (36.0-47.0); HEMOGLOBIN 8.9 g/dl (12.0-15.5); LYMPH # 1.1 10^3/uL (1.5-5.0); LYMPH % 13.1 % (24.0-44.0); MEAN CORPUSCULAR HEMOGLOBIN 20.7 pg (27.0-33.0); MEAN CORPUSCULAR HGB CONC 33.6 g/dl (32.0-36.5); MEAN CORPUSCULAR VOLUME 61.8 fl (80.0-96.0); MONO # 0.5 10^3/uL (0.0-0.8); MONO % 5.9 % (2.0-8.0); NEUTROPHILS # 6.8 10^3/uL (1.5-8.5); NEUTROPHILS % 80.2 % (36.0-66.0); PLATELET COUNT, AUTOMATED 200 10^3/uL (150-450); RED BLOOD COUNT 4.29 10^6/uL (4.00-5.40); WHITE BLOOD COUNT 8.5 10^3/uL (4.0-10.0)
[2021-07-30 20:26] VITALS: BP 146/90
[2021-07-30] MEDS: MONTELUKAST 10 MG TAB PO SCH (20:43)
[2021-07-30 20:46] LABS: BLOOD UREA NITROGEN 8 MG/DL (7-18); CALCIUM LEVEL 8.9 MG/DL (8.5-10.1); CARBON DIOXIDE LEVEL 21 MEQ/L (21-32); CHLORIDE LEVEL 117 MEQ/L (98-107); CREATININE FOR GFR 0.46 MG/DL (0.55-1.30); GLOMERULAR FILTRATION RATE > 60.0 (>58); GLUCOSE, FASTING 90 MG/DL (70-100); MAGNESIUM LEVEL 1.7 MG/DL (1.8-2.4); PHOSPHORUS LEVEL 1.1 MG/DL (2.5-4.9); POTASSIUM SERUM 3.1 MEQ/L (3.5-5.1); SODIUM LEVEL 148 MEQ/L (136-145)
[2021-07-30] MEDS ORDERED: OMEPRAZOLE 20MG CAP PO SCH (21:00)
[2021-07-30] MEDS: MAG SULF 1GM/100ML (MAG RUN) 1 GM in IV 1 EA IV SCH (23:56)
[2021-07-31] VITALS (7 sets, daily range): BP systolic 103–142; BP diastolic 58–78; PULSE 80
[2021-07-31] MEDS: MAG SULF 1GM/100ML (MAG RUN) 1 GM in IV 1 EA IV SCH (00:53)
[2021-07-31 00:59] LABS: BLOOD UREA NITROGEN 7 MG/DL (7-18); CALCIUM LEVEL 8.2 MG/DL (8.5-10.1); CARBON DIOXIDE LEVEL 24 MEQ/L (21-32); CHLORIDE LEVEL 113 MEQ/L (98-107); GLOMERULAR FILTRATION RATE > 60.0 (>58); GLUCOSE, FASTING 98 MG/DL (70-100); MAGNESIUM LEVEL 1.6 MG/DL (1.8-2.4); PHOSPHORUS LEVEL 3.7 MG/DL (2.5-4.9); SODIUM LEVEL 143 MEQ/L (136-145)
[2021-07-31 05:04] LABS: CREATININE,RANDOM URINE 79.1 MG/DL; POTASSIUM RANDOM URINE 37.2 MEQ/L
[2021-07-31] MEDS: LEVOTHYROXINE 25MCG TABLET (0.025MG) PO SCH (06:09)
[2021-07-31] MEDS: D5W/0.45% SODIUM CHLORIDE 1,000 ML IV SCH ×3 (06:09→23:40)
[2021-07-31] MEDS: ENOXAPARIN 30MG/0.3ML SYRINGE (J1650 PER 10MG) SC SCH (08:07)
[2021-07-31] MEDS: PANTOPRAZOLE 40MG VIAL IV SCH ×2 (08:07→20:28)
[2021-07-31] MEDS: metroNIDAZOLE 500 MG in IV 1 EA IV SCH ×5 (08:07→23:49)
[2021-07-31] MEDS: GABAPENTIN 300 MG CAP PO SCH ×2 (08:11→19:59)
[2021-07-31] MEDS: LACTOBACILLUS ACIDOPHILUS CAP (BACID) PO SCH ×2 (08:16→08:19)
[2021-07-31] MEDS: CelecoXIB (CeleBREX) 100 MG CAP PO SCH ×2 (08:16→08:19)
[2021-07-31 08:32] LABS: BASO % 0.3 % (0.0-1.0); EOS % 0.2 % (0.0-3.0); HEMATOCRIT 26.1 % (36.0-47.0); HEMOGLOBIN 8.6 g/dl (12.0-15.5); LYMPH # 1.3 10^3/uL (1.5-5.0); LYMPH % 21.3 % (24.0-44.0); MEAN CORPUSCULAR HEMOGLOBIN 20.3 pg (27.0-33.0); MEAN CORPUSCULAR VOLUME 61.7 fl (80.0-96.0); MONO # 0.5 10^3/uL (0.0-0.8); NEUTROPHILS # 4.2 10^3/uL (1.5-8.5); NEUTROPHILS % 69.9 % (36.0-66.0); PLATELET COUNT, AUTOMATED 174 10^3/uL (150-450); RED BLOOD COUNT 4.23 10^6/uL (4.00-5.40)
[2021-07-31] MEDS ORDERED: K-PHOS NEUTRAL 250MG TABLET (SOD.PHOSPHATE/POT.PHOSPHATE) PO SCH (09:00)
[2021-07-31 09:16] LABS: ALT/SGPT 19 U/L (12-78); BILIRUBIN,TOTAL 0.9 MG/DL (0.2-1.0); BLOOD UREA NITROGEN 5 MG/DL (7-18); CALCIUM LEVEL 8.3 MG/DL (8.5-10.1); CARBON DIOXIDE LEVEL 26 MEQ/L (21-32); CHLORIDE LEVEL 112 MEQ/L (98-107); CREATININE FOR GFR 0.36 MG/DL (0.55-1.30); GLOMERULAR FILTRATION RATE > 60.0 (>58); GLUCOSE, FASTING 105 MG/DL (70-100); MAGNESIUM LEVEL 2.1 MG/DL (1.8-2.4); POTASSIUM SERUM 2.7 MEQ/L (3.5-5.1); SODIUM LEVEL 144 MEQ/L (136-145); TOTAL PROTEIN 5.1 GM/DL (6.4-8.2)
[2021-07-31] MEDS ORDERED: POTASSIUM CHLORIDE 10% LIQ 20 MEQ/15 ML UDC PO ONE (09:35)
[2021-07-31] MEDS: KCL 10MEQ/100ML SWI (KRUN) 10 MEQ in IV 1 EA IV SCH ×3 (09:54→11:49)
[2021-07-31] MEDS: cefTRIAXone SOD 1 GM in D5W MINI-BAG PLUS 50 ML IV SCH (09:54)
[2021-07-31] MEDS ORDERED: POTASSIUM PHOSPHATE INJ 30 MMOL in D5W 500 ML IV ONE (12:00)
[2021-07-31] MEDS: THIAMINE 200MG 2ML VIAL IV SCH (12:41)
[2021-07-31] MEDS: MONTELUKAST 10 MG TAB PO SCH (19:59)
[2021-07-31 20:17] LABS: BLOOD UREA NITROGEN 3 MG/DL (7-18); CALCIUM LEVEL 7.9 MG/DL (8.5-10.1); CARBON DIOXIDE LEVEL 30 MEQ/L (21-32); CHLORIDE LEVEL 109 MEQ/L (98-107); CREATININE FOR GFR 0.53 MG/DL (0.55-1.30); GLOMERULAR FILTRATION RATE > 60.0 (>58); GLUCOSE, FASTING 103 MG/DL (70-100); SODIUM LEVEL 142 MEQ/L (136-145)
[2021-07-31] MEDS: LORazepam 2 MG/ML VIAL IV PRN (20:29)
[2021-07-31] MEDS ORDERED: KCL 10MEQ/100ML SWI (KRUN) 10 MEQ in IV 1 EA IV ONE (22:30)
[2021-08-01] VITALS: BP 129/81
[2021-08-01 04:00] VITALS: BP 104/55
[2021-08-01] MEDS: LEVOTHYROXINE 25MCG TABLET (0.025MG) PO SCH (05:30)
[2021-08-01 06:18] LABS: BASO % 0.4 % (0.0-1.0); EOS # 0.1 10^3/uL (0.0-0.5); EOS % 1.6 % (0.0-3.0); HEMATOCRIT 27.5 % (36.0-47.0); HEMOGLOBIN 9.2 g/dl (12.0-15.5); LYMPH # 1.1 10^3/uL (1.5-5.0); LYMPH % 19.5 % (24.0-44.0); MEAN CORPUSCULAR HGB CONC 33.5 g/dl (32.0-36.5); MEAN CORPUSCULAR VOLUME 62.6 fl (80.0-96.0); MONO # 0.5 10^3/uL (0.0-0.8); MONO % 8.2 % (2.0-8.0); NEUTROPHILS # 3.8 10^3/uL (1.5-8.5); NEUTROPHILS % 70.1 % (36.0-66.0); PLATELET COUNT, AUTOMATED 157 10^3/uL (150-450); RED BLOOD COUNT 4.39 10^6/uL (4.00-5.40); WHITE BLOOD COUNT 5.5 10^3/uL (4.0-10.0)
[2021-08-01 06:51] LABS: ALBUMIN 3.2 GM/DL (3.2-5.2); ALT/SGPT 19 U/L (12-78); BILIRUBIN,TOTAL 0.8 MG/DL (0.2-1.0); BLOOD UREA NITROGEN 3 MG/DL (7-18); CALCIUM LEVEL 8.5 MG/DL (8.5-10.1); CARBON DIOXIDE LEVEL 30 MEQ/L (21-32); CHLORIDE LEVEL 110 MEQ/L (98-107); CREATININE FOR GFR 0.36 MG/DL (0.55-1.30); GLOMERULAR FILTRATION RATE > 60.0 (>58); GLUCOSE, FASTING 109 MG/DL (70-100); MAGNESIUM LEVEL 2.1 MG/DL (1.8-2.4); POTASSIUM SERUM 3.2 MEQ/L (3.5-5.1); SODIUM LEVEL 145 MEQ/L (136-145); TOTAL PROTEIN 5.3 GM/DL (6.4-8.2)
[2021-08-01 07:25] VITALS: BP 118/74
[2021-08-01] MEDS ORDERED: POTASSIUM CHLORIDE 10% LIQ 20 MEQ/15 ML UDC PO ONE (08:30)
[2021-08-01] MEDS: KCL 10MEQ/100ML SWI (KRUN) 10 MEQ in IV 1 EA IV SCH ×4 (08:55→14:15)
[2021-08-01] MEDS: metroNIDAZOLE 500 MG in IV 1 EA IV SCH ×2 (08:56→17:20)
[2021-08-01] MEDS: PANTOPRAZOLE 40MG VIAL IV SCH ×2 (08:56→21:43)
[2021-08-01] MEDS: ENOXAPARIN 30MG/0.3ML SYRINGE (J1650 PER 10MG) SC SCH (08:56)
[2021-08-01] MEDS: LACTOBACILLUS ACIDOPHILUS CAP (BACID) PO SCH (09:00)
[2021-08-01] MEDS: CelecoXIB (CeleBREX) 100 MG CAP PO SCH (09:00)
[2021-08-01] MEDS: GABAPENTIN 300 MG CAP PO SCH ×2 (09:00→21:43)
[2021-08-01] MEDS ORDERED: ISOVUE-370 76% 100ML VIAL As Ordered ONE (10:58)
[2021-08-01] MEDS: D5W/0.45% SODIUM CHLORIDE 1,000 ML IV SCH ×2 (11:15→23:20)
[2021-08-01 12:26] VITALS: BP 115/59
[2021-08-01] MEDS: cefTRIAXone SOD 1 GM in D5W MINI-BAG PLUS 50 ML IV SCH (12:35)
[2021-08-01] MEDS: THIAMINE 200MG 2ML VIAL IV SCH (12:35)
[2021-08-01] MEDS ORDERED: LORazepam 2 MG/ML VIAL As Ordered ONE (14:36)
[2021-08-01] MEDS: LORazepam 2 MG/ML VIAL IV PRN (14:46)
[2021-08-01 15:58] VITALS: BP 114/77
[2021-08-01 20:00] VITALS: BP 118/79
[2021-08-01] MEDS: MONTELUKAST 10 MG TAB PO SCH (21:43)
[2021-08-02] VITALS: BP 125/58
[2021-08-02] MEDS: metroNIDAZOLE 500 MG in IV 1 EA IV SCH ×3 (00:56→16:36)
[2021-08-02 04:00] VITALS: BP 111/61
[2021-08-02] MEDS: CAPSAICIN 0.025% CR 60 GM TOP PRN ×2 (04:28→13:06)
[2021-08-02 05:51] LABS: BASO % 0.4 % (0.0-1.0); EOS # 0.2 10^3/uL (0.0-0.5); EOS % 3.4 % (0.0-3.0); HEMATOCRIT 28.4 % (36.0-47.0); HEMOGLOBIN 9.3 g/dl (12.0-15.5); LYMPH # 1.3 10^3/uL (1.5-5.0); LYMPH % 28.4 % (24.0-44.0); MEAN CORPUSCULAR HEMOGLOBIN 20.7 pg (27.0-33.0); MEAN CORPUSCULAR HGB CONC 32.7 g/dl (32.0-36.5); MEAN CORPUSCULAR VOLUME 63.1 fl (80.0-96.0); MONO # 0.5 10^3/uL (0.0-0.8); NEUTROPHILS # 2.6 10^3/uL (1.5-8.5); NEUTROPHILS % 56.6 % (36.0-66.0); PLATELET COUNT, AUTOMATED 146 10^3/uL (150-450); WHITE BLOOD COUNT 4.7 10^3/uL (4.0-10.0)
[2021-08-02] MEDS: LEVOTHYROXINE 25MCG TABLET (0.025MG) PO SCH (06:00)
[2021-08-02 06:20] LABS: ALBUMIN 3.1 GM/DL (3.2-5.2); ALT/SGPT 22 U/L (12-78); BILIRUBIN,TOTAL 0.6 MG/DL (0.2-1.0); BLOOD UREA NITROGEN 2 MG/DL (7-18); CALCIUM LEVEL 8.5 MG/DL (8.5-10.1); CARBON DIOXIDE LEVEL 26 MEQ/L (21-32); CHLORIDE LEVEL 111 MEQ/L (98-107); CREATININE FOR GFR 0.37 MG/DL (0.55-1.30); GLOMERULAR FILTRATION RATE > 60.0 (>58); GLUCOSE, FASTING 113 MG/DL (70-100); MAGNESIUM LEVEL 1.8 MG/DL (1.8-2.4); POTASSIUM SERUM 2.9 MEQ/L (3.5-5.1); SODIUM LEVEL 143 MEQ/L (136-145); TOTAL PROTEIN 5.5 GM/DL (6.4-8.2)
[2021-08-02] MEDS ORDERED: POTASSIUM CHLORIDE 10% LIQ 20 MEQ/15 ML UDC PO ONE ×2 (06:25→15:50)
[2021-08-02] MEDS: LORazepam 2 MG/ML VIAL IV PRN (07:07)
[2021-08-02 08:00] VITALS: BP 101/58
[2021-08-02] MEDS: GABAPENTIN 300 MG CAP PO SCH ×2 (09:00→20:34)
[2021-08-02] MEDS: PANTOPRAZOLE 40MG VIAL IV SCH ×2 (09:02→20:35)
[2021-08-02] MEDS: KCL 10MEQ/100ML SWI (KRUN) 10 MEQ in IV 1 EA IV SCH ×5 (09:02→20:35)
[2021-08-02] MEDS: SCOPOLAMINE 1MG TRANSDERMAL PATCH TOP SCH (09:03)
[2021-08-02] MEDS: LACTOBACILLUS ACIDOPHILUS CAP (BACID) PO SCH (09:03)
[2021-08-02] MEDS: ENOXAPARIN 30MG/0.3ML SYRINGE (J1650 PER 10MG) SC SCH (09:04)
[2021-08-02] MEDS: THIAMINE 200MG 2ML VIAL IV SCH (12:03)
[2021-08-02] MEDS: cefTRIAXone SOD 1 GM in D5W MINI-BAG PLUS 50 ML IV SCH (12:03)
[2021-08-02 12:15] VITALS: BP 116/69
[2021-08-02 12:43] LABS: MAGNESIUM LEVEL 1.9 MG/DL (1.8-2.4)
[2021-08-02] MEDS: D5W/0.45% SODIUM CHLORIDE 1,000 ML IV SCH (14:37)
[2021-08-02 15:31] VITALS: BP 126/80
[2021-08-02] MEDS ORDERED: GI COCKTAIL 50ML BTL(HYOSCYAMINE/MAALOX/LIDOCAINE VISCOUS)(1:3:1) PO PRN (15:50)
[2021-08-02 16:52] LABS: CK-MB VALUE MASS 1.8 NG/ML (<3.6); MB/CK RELATIVE INDEX 1.82 (< OR =4)
[2021-08-02] MEDS ORDERED: POTASSIUM CHLORIDE 10MEQ SR TABLET PO ONE (17:00)
[2021-08-02] MEDS: METOCLOPRAMIDE INJ 10MG/2ML VIAL (J2765 PER 1) IV PRN (18:52)
[2021-08-02 20:00] VITALS: BP 131/89
[2021-08-02] MEDS: MONTELUKAST 10 MG TAB PO SCH (20:34)
[2021-08-03] VITALS: BP 105/71
[2021-08-03 00:23] LABS: HEMATOCRIT 28.7 % (36.0-47.0); HEMOGLOBIN 9.4 g/dl (12.0-15.5)
[2021-08-03] MEDS: metroNIDAZOLE 500 MG in IV 1 EA IV SCH ×4 (01:06→23:35)
[2021-08-03 04:00] VITALS: BP 107/62
[2021-08-03 05:24] LABS: BASO % 0.7 % (0.0-1.0); EOS # 0.3 10^3/uL (0.0-0.5); EOS % 4.8 % (0.0-3.0); HEMATOCRIT 29.2 % (36.0-47.0); HEMOGLOBIN 9.4 g/dl (12.0-15.5); LYMPH # 1.2 10^3/uL (1.5-5.0); LYMPH % 21.9 % (24.0-44.0); MEAN CORPUSCULAR HEMOGLOBIN 20.4 pg (27.0-33.0); MEAN CORPUSCULAR HGB CONC 32.2 g/dl (32.0-36.5); MEAN CORPUSCULAR VOLUME 63.5 fl (80.0-96.0); MONO # 0.5 10^3/uL (0.0-0.8); MONO % 9.4 % (2.0-8.0); NEUTROPHILS # 3.5 10^3/uL (1.5-8.5); NEUTROPHILS % 62.8 % (36.0-66.0); PLATELET COUNT, AUTOMATED 152 10^3/uL (150-450); WHITE BLOOD COUNT 5.6 10^3/uL (4.0-10.0)
[2021-08-03] MEDS: METOCLOPRAMIDE INJ 10MG/2ML VIAL (J2765 PER 1) IV PRN (05:40)
[2021-08-03] MEDS: LEVOTHYROXINE 25MCG TABLET (0.025MG) PO SCH (05:40)
[2021-08-03 05:47] LABS: ALBUMIN 3.1 GM/DL (3.2-5.2); ALT/SGPT 31 U/L (12-78); BILIRUBIN,TOTAL 0.6 MG/DL (0.2-1.0); BLOOD UREA NITROGEN 3 MG/DL (7-18); CARBON DIOXIDE LEVEL 27 MEQ/L (21-32); CHLORIDE LEVEL 113 MEQ/L (98-107); CREATININE FOR GFR 0.47 MG/DL (0.55-1.30); GLOMERULAR FILTRATION RATE > 60.0 (>58); GLUCOSE, FASTING 98 MG/DL (70-100); MAGNESIUM LEVEL 1.8 MG/DL (1.8-2.4); POTASSIUM SERUM 3.9 MEQ/L (3.5-5.1); SODIUM LEVEL 142 MEQ/L (136-145); TOTAL PROTEIN 5.1 GM/DL (6.4-8.2)
[2021-08-03] MEDS: GABAPENTIN 300 MG CAP PO SCH ×2 (07:36→21:20)
[2021-08-03] MEDS: busPIRone 10 MG TAB PO SCH ×2 (07:46→21:00)
[2021-08-03] MEDS: PANTOPRAZOLE 40MG VIAL IV SCH ×2 (08:00→21:19)
[2021-08-03] MEDS: ENOXAPARIN 30MG/0.3ML SYRINGE (J1650 PER 10MG) SC SCH (08:00)
[2021-08-03 08:03] VITALS: BP 119/75
[2021-08-03] MEDS: LACTOBACILLUS ACIDOPHILUS CAP (BACID) PO SCH (09:00)
[2021-08-03] MEDS ORDERED: E-Z-HD 98% w/w 340GM SUSP BTL As Ordered ONE (09:27)
[2021-08-03] MEDS ORDERED: E-Z-GAS II EFFERVESCENT PACKET (SODIUM BICARB./CITRIC ACID/SIMETHICONE) As Ordered ONE (09:27)
[2021-08-03] MEDS ORDERED: E-Z-PAQUE 96% w/w SUSP 176GM BTL As Ordered ONE (09:27)
[2021-08-03] MEDS: THIAMINE 200MG 2ML VIAL IV SCH (12:00)
[2021-08-03 12:19] LABS: C REACTIVE PROTEIN QUANTITATIV < 0.30 MG/DL (0.00-0.30)
[2021-08-03 15:59] VITALS: BP 113/76
[2021-08-03] MEDS: cefTRIAXone SOD 1 GM in D5W MINI-BAG PLUS 50 ML IV SCH (16:05)
[2021-08-03 20:00] VITALS: BP 116/67
[2021-08-03] MEDS: MONTELUKAST 10 MG TAB PO SCH (21:20)
[2021-08-03] MEDS: CAPSAICIN 0.025% CR 60 GM TOP PRN (21:21)
[2021-08-04] VITALS: BP 98/64
[2021-08-04 04:00] VITALS: BP 112/65
[2021-08-04] MEDS: LEVOTHYROXINE 25MCG TABLET (0.025MG) PO SCH (05:29)
[2021-08-04] MEDS: CAPSAICIN 0.025% CR 60 GM TOP PRN ×2 (05:30→20:47)
[2021-08-04 05:31] LABS: BASO % 0.6 % (0.0-1.0); EOS # 0.3 10^3/uL (0.0-0.5); EOS % 5.1 % (0.0-3.0); HEMOGLOBIN 9.8 g/dl (12.0-15.5); LYMPH # 1.7 10^3/uL (1.5-5.0); LYMPH % 26.7 % (24.0-44.0); MEAN CORPUSCULAR HEMOGLOBIN 20.5 pg (27.0-33.0); MEAN CORPUSCULAR HGB CONC 32.7 g/dl (32.0-36.5); MEAN CORPUSCULAR VOLUME 62.9 fl (80.0-96.0); MONO # 0.6 10^3/uL (0.0-0.8); MONO % 10.1 % (2.0-8.0); NEUTROPHILS # 3.5 10^3/uL (1.5-8.5); PLATELET COUNT, AUTOMATED 154 10^3/uL (150-450); RED BLOOD COUNT 4.77 10^6/uL (4.00-5.40); WHITE BLOOD COUNT 6.2 10^3/uL (4.0-10.0)
[2021-08-04 06:01] LABS: ALBUMIN 3.2 GM/DL (3.2-5.2); ALT/SGPT 43 U/L (12-78); BILIRUBIN,TOTAL 0.5 MG/DL (0.2-1.0); BLOOD UREA NITROGEN 5 MG/DL (7-18); CALCIUM LEVEL 8.9 MG/DL (8.5-10.1); CARBON DIOXIDE LEVEL 29 MEQ/L (21-32); CHLORIDE LEVEL 109 MEQ/L (98-107); CREATININE FOR GFR 0.48 MG/DL (0.55-1.30); GLOMERULAR FILTRATION RATE > 60.0 (>58); GLUCOSE, FASTING 89 MG/DL (70-100); MAGNESIUM LEVEL 2.1 MG/DL (1.8-2.4); POTASSIUM SERUM 3.8 MEQ/L (3.5-5.1); SODIUM LEVEL 142 MEQ/L (136-145); TOTAL PROTEIN 5.6 GM/DL (6.4-8.2)
[2021-08-04 07:13] VITALS: BP 124/57
[2021-08-04] MEDS: LACTOBACILLUS ACIDOPHILUS CAP (BACID) PO SCH (09:15)
[2021-08-04] MEDS: metroNIDAZOLE 500 MG in IV 1 EA IV SCH ×2 (09:15→15:21)
[2021-08-04] MEDS: PANTOPRAZOLE 40MG VIAL IV SCH ×2 (09:16→20:26)
[2021-08-04] MEDS: GABAPENTIN 300 MG CAP PO SCH ×2 (09:16→20:26)
[2021-08-04] MEDS: ENOXAPARIN 30MG/0.3ML SYRINGE (J1650 PER 10MG) SC SCH (09:16)
[2021-08-04] MEDS: busPIRone 10 MG TAB PO SCH ×3 (09:16→20:30)
[2021-08-04] MEDS: cefTRIAXone SOD 1 GM in D5W MINI-BAG PLUS 50 ML IV SCH (10:27)
[2021-08-04] MEDS: DOCUSATE SODIUM 100MG CAPSULE PO SCH ×2 (11:24→20:27)
[2021-08-04] MEDS: BISACODYL 10 MG SUPP PR SCH ×2 (11:24→20:27)
[2021-08-04] MEDS: THIAMINE 200MG 2ML VIAL IV SCH (11:24)
[2021-08-04] MEDS: SENNA 8.6 MG TAB (SENOKOT) PO SCH ×2 (11:24→20:27)
[2021-08-04 11:46] VITALS: BP 110/68
[2021-08-04 20:00] VITALS: BP 106/80
[2021-08-04] MEDS: MONTELUKAST 10 MG TAB PO SCH (20:27)
[2021-08-05] MEDS: metroNIDAZOLE 500 MG in IV 1 EA IV SCH ×2 (00:12→08:29)
[2021-08-05 04:00] VITALS: BP 107/68
[2021-08-05 05:54] LABS: BASO % 0.4 % (0.0-1.0); EOS # 0.3 10^3/uL (0.0-0.5); EOS % 4.4 % (0.0-3.0); HEMATOCRIT 30.2 % (36.0-47.0); HEMOGLOBIN 9.9 g/dl (12.0-15.5); LYMPH # 1.9 10^3/uL (1.5-5.0); LYMPH % 26.8 % (24.0-44.0); MEAN CORPUSCULAR HEMOGLOBIN 20.7 pg (27.0-33.0); MEAN CORPUSCULAR HGB CONC 32.8 g/dl (32.0-36.5); MEAN CORPUSCULAR VOLUME 63.2 fl (80.0-96.0); MONO # 0.7 10^3/uL (0.0-0.8); NEUTROPHILS # 4.3 10^3/uL (1.5-8.5); NEUTROPHILS % 58.8 % (36.0-66.0); PLATELET COUNT, AUTOMATED 169 10^3/uL (150-450); RED BLOOD COUNT 4.78 10^6/uL (4.00-5.40); WHITE BLOOD COUNT 7.2 10^3/uL (4.0-10.0)
[2021-08-05] MEDS: LEVOTHYROXINE 25MCG TABLET (0.025MG) PO SCH (06:00)
[2021-08-05 06:24] LABS: ALBUMIN 3.2 GM/DL (3.2-5.2); ALT/SGPT 51 U/L (12-78); BILIRUBIN,TOTAL 0.6 MG/DL (0.2-1.0); BLOOD UREA NITROGEN 6 MG/DL (7-18); CALCIUM LEVEL 9.1 MG/DL (8.5-10.1); CARBON DIOXIDE LEVEL 28 MEQ/L (21-32); CHLORIDE LEVEL 109 MEQ/L (98-107); CREATININE FOR GFR 0.52 MG/DL (0.55-1.30); GLOMERULAR FILTRATION RATE > 60.0 (>58); GLUCOSE, FASTING 95 MG/DL (70-100); MAGNESIUM LEVEL 2.1 MG/DL (1.8-2.4); POTASSIUM SERUM 3.6 MEQ/L (3.5-5.1); SODIUM LEVEL 143 MEQ/L (136-145); TOTAL PROTEIN 5.5 GM/DL (6.4-8.2)
[2021-08-05 07:27] VITALS: BP 102/67
[2021-08-05] MEDS: LACTOBACILLUS ACIDOPHILUS CAP (BACID) PO SCH (08:30)
[2021-08-05] MEDS: SENNA 8.6 MG TAB (SENOKOT) PO SCH (08:30)
[2021-08-05] MEDS: GABAPENTIN 300 MG CAP PO SCH (08:30)
[2021-08-05] MEDS: PANTOPRAZOLE 40MG VIAL IV SCH (08:30)
[2021-08-05] MEDS: DOCUSATE SODIUM 100MG CAPSULE PO SCH (08:30)
[2021-08-05] MEDS: busPIRone 10 MG TAB PO SCH (08:30)
[2021-08-05] MEDS: ENOXAPARIN 30MG/0.3ML SYRINGE (J1650 PER 10MG) SC SCH (08:31)
[2021-08-05] MEDS: BISACODYL 10 MG SUPP PR SCH (08:32)
[2021-08-05] MEDS: SCOPOLAMINE 1MG TRANSDERMAL PATCH TOP SCH (08:32)
[2021-08-05] MEDS: cefTRIAXone SOD 1 GM in D5W MINI-BAG PLUS 50 ML IV SCH (09:51)
[2021-08-05] MEDS: THIAMINE 200MG 2ML VIAL IV SCH (11:58)
[2021-08-05] MEDS ORDERED: BISA10SU PR (12:55)
[2021-08-05] MEDS ORDERED: RISATAB3 PO (12:55)
[2021-08-05] MEDS ORDERED: PANT-23 PO (12:55)
[2021-08-05] MEDS ORDERED: COLA100C5 PO (12:55)
[2021-08-05] MEDS ORDERED: REGL10TA6 PO (13:07)
== END 2021-08-05 14:20 | disposition home health service (06) | DRG 391 ==
LOC: M ED 14:57 → M ED INP 19:25 → M PCU 19:25 → ENRESERV 07-30 17:12 → M PCU 07-30 18:38
PROVIDERS: ADMIT Family Medicine; ATTEND Family Medicine
DX: A08.4 Viral intestinal infection, unspecified (principal); G80.0 Spastic quadriplegic cerebral palsy; E87.2 Acidosis; E87.0 Hyperosmolality and hypernatremia; E86.0 Dehydration; G40.909 Epilepsy, unspecified, not intractable, without status epilepticus; K21.9 Gastro-esophageal reflux disease without esophagitis; F41.9 Anxiety disorder, unspecified; E28.2 Polycystic ovarian syndrome; G43.909 Migraine, unspecified, not intractable, without status migrainosus; J45.909 Unspecified asthma, uncomplicated; N31.9 Neuromuscular dysfunction of bladder, unspecified; E03.9 Hypothyroidism, unspecified; E83.39 Other disorders of phosphorus metabolism; R00.0 Tachycardia, unspecified; E87.6 Hypokalemia; Z79.899 Other long term (current) drug therapy; Z87.440 Personal history of urinary (tract) infections; Z90.49 Acquired absence of other specified parts of digestive tract; Z88.0 Allergy status to penicillin; Z88.2 Allergy status to sulfonamides; Z88.8 Allergy status to other drugs, medicaments and biological substances

== ENCOUNTER → 2021-08-29 | Outpatient (CLI) | payer MEDICAID, MEDICARE ==
[~2021-08-29] MED LIST changes: +AIMO70IN2 INJ; +BISA10SU PR; +CELE1CAP7 PO; +COLA100C5 PO; +ERGO500029 PO; +GABA-282 PO; +HYDR-643 PO; +MONT10TA97 PO; +OMEP-173 PO; +PANT-23 PO; +REGL10TA6 PO; +RISATAB3 PO; +TIZA2TA PO
== END ==
LOC: M RAD 07:33
PROVIDERS: ATTEND Student in an Organized Health Care Education/Training Program
DX: I67.1 Cerebral aneurysm, nonruptured (principal)

== ENCOUNTER → 2021-09-06 | Outpatient (REF) | payer OTHER, MEDICAID ==
[2021-09-06 17:46] LABS: PERCENT SATURATION 15.3 % (13.2-45.0)
== END ==
LOC: M LAB REF 16:40
PROVIDERS: ATTEND Internal Medicine
DX: K62.5 Hemorrhage of anus and rectum (principal); R19.5 Other fecal abnormalities

== ENCOUNTER → 2021-11-08 | Outpatient (CLI) | payer MEDICAID, MEDICARE, OTHER ==
[~2021-11-08] MED LIST changes: +ALBU6.7H6 INH; +ALBU8.5H INH; +PANT40TA29 PO; -PROV108A INH; +SUCR1TAB56 PO
== END ==
LOC: M LABSMTC 10:55
PROVIDERS: ATTEND Anesthesiology
DX: Z01.818 Encounter for other preprocedural examination (principal); Z11.52 Encounter for screening for COVID-19

== ENCOUNTER 2021-11-13 10:05 | Day surgery (SDC) | payer MEDICAID, MEDICARE ==
[~2021-11-13] VITALS: Ht 147.3 cm; Wt 48.1 kg
[~2021-11-13 10:05] MED LIST changes: +NS 1,000 ML IV ONE
[2021-11-13] MEDS ORDERED: propofoL 200 MG/20 ML VIAL As Ordered ONE (10:22)
[2021-11-13] MEDS ORDERED: LIDOCAINE 2% 100MG/5ML SDV (FOR ANES.) As Ordered ONE (10:22)
[2021-11-13 12:00] VITALS: BP 121/75
== END 2021-11-13 12:09 | disposition home or self-care (01) ==
LOC: M OPP 10:05
PROVIDERS: ATTEND Internal Medicine Gastroenterology
DX: K63.5 Polyp of colon (principal); K57.30 Diverticulosis of large intestine without perforation or abscess without bleeding; K64.4 Residual hemorrhoidal skin tags; K64.8 Other hemorrhoids; K92.1 Melena; Z80.0 Family history of malignant neoplasm of digestive organs; K30 Functional dyspepsia; K29.70 Gastritis, unspecified, without bleeding; K31.89 Other diseases of stomach and duodenum; K22.89 Other specified disease of esophagus; Z79.51 Long term (current) use of inhaled steroids; Z79.899 Other long term (current) drug therapy; Z88.0 Allergy status to penicillin; Z88.1 Allergy status to other antibiotic agents; Z88.2 Allergy status to sulfonamides; E03.9 Hypothyroidism, unspecified; G80.9 Cerebral palsy, unspecified; G43.909 Migraine, unspecified, not intractable, without status migrainosus; D64.9 Anemia, unspecified; F32.9 Major depressive disorder, single episode, unspecified; F41.9 Anxiety disorder, unspecified

== ENCOUNTER → 2022-01-29 | Outpatient (CLI) | payer MEDICAID, MEDICARE ==
[~2022-01-29] MED LIST changes: -NS 1,000 ML IV ONE
== END ==
LOC: M WHC 13:24
PROVIDERS: ATTEND Internal Medicine
DX: Z12.31 Encounter for screening mammogram for malignant neoplasm of breast (principal)

== ENCOUNTER → 2022-03-04 | Outpatient (CLI) | payer MEDICARE, MEDICAID ==
[2022-03-04 13:52] LABS: BASO # 0.1 10^3/uL (0.0-0.2); BASO % 0.9 % (0.0-1.0); EOS # 0.2 10^3/uL (0.0-0.5); EOS % 2.9 % (0.0-3.0); HEMATOCRIT 33.1 % (36.0-47.0); HEMOGLOBIN 10.3 g/dl (12.0-15.5); LYMPH # 1.3 10^3/uL (1.5-5.0); LYMPH % 22.3 % (24.0-44.0); MEAN CORPUSCULAR HEMOGLOBIN 19.1 pg (27.0-33.0); MEAN CORPUSCULAR HGB CONC 31.1 g/dl (32.0-36.5); MEAN CORPUSCULAR VOLUME 61.4 fl (80.0-96.0); MONO # 0.4 10^3/uL (0.0-0.8); MONO % 6.1 % (2.0-8.0); NEUTROPHILS # 3.9 10^3/uL (1.5-8.5); NEUTROPHILS % 67.5 % (36.0-66.0); PLATELET COUNT, AUTOMATED 228 10^3/uL (150-450); RED BLOOD COUNT 5.39 10^6/uL (4.00-5.40); WHITE BLOOD COUNT 5.8 10^3/uL (4.0-10.0)
[2022-03-04 14:16] LABS: ALBUMIN 3.7 G/DL (3.2-5.2); ALKALINE PHOSPHATASE 79 U/L (46-116); ALT/SGPT 16 U/L (7.0-40); AST/SGOT 11 U/L (<34); BILIRUBIN,TOTAL 0.5 MG/DL (0.3-1.2); BLOOD UREA NITROGEN 7 MG/DL (9-23); CALCIUM LEVEL 8.9 MG/DL (8.5-10.1); CARBON DIOXIDE LEVEL 25 MMOL/L (20-31); CHLORIDE LEVEL 109 MMOL/L (98-107); GLOMERULAR FILTRATION RATE > 60.0 (>58); GLUCOSE, FASTING 115 MG/DL (60-100); SODIUM LEVEL 142 MMOL/L (136-145); TOTAL PROTEIN 6.2 G/DL (5.7-8.2)
[2022-03-04 14:18] LABS: THYROID STIMULATING HORMONE 3.879 uIU/ML (0.55-4.78)
== END ==
LOC: M LAB 13:02
PROVIDERS: ATTEND Internal Medicine
DX: A41.9 Sepsis, unspecified organism (principal); E07.9 Disorder of thyroid, unspecified

== ENCOUNTER → 2022-03-06 | Outpatient (CLI) | payer MEDICARE, MEDICAID | LOC: M WUC 11:31 | PROVIDERS: ATTEND Internal Medicine | DX: R06.02 Shortness of breath (principal); R05.9 Cough, unspecified ==

== ENCOUNTER 2022-03-20 11:25 | Emergency (ER) | payer MEDICAID, MEDICARE, OTHER ==
[~2022-03-20] VITALS: Ht 162.6 cm; Wt 48.6 kg
[2022-03-20 12:37] LABS: BASO # 0.1 10^3/uL (0.0-0.2); BASO % 0.3 % (0.0-1.0); EOS % 0.3 % (0.0-3.0); HEMOGLOBIN 11.6 g/dl (12.0-15.5); LYMPH % 18.9 % (24.0-44.0); MEAN CORPUSCULAR HEMOGLOBIN 19.4 pg (27.0-33.0); MEAN CORPUSCULAR HGB CONC 32.2 g/dl (32.0-36.5); MEAN CORPUSCULAR VOLUME 60.2 fl (80.0-96.0); MONO # 0.9 10^3/uL (0.0-0.8); MONO % 5.4 % (2.0-8.0); NEUTROPHILS # 11.7 10^3/uL (1.5-8.5); NEUTROPHILS % 74.3 % (36.0-66.0); PLATELET COUNT, AUTOMATED 271 10^3/uL (150-450); RED BLOOD COUNT 5.98 10^6/uL (4.00-5.40); WHITE BLOOD COUNT 15.8 10^3/uL (4.0-10.0)
[2022-03-20 13:02] LABS: ALBUMIN 4.1 G/DL (3.2-5.2); ALKALINE PHOSPHATASE 87 U/L (46-116); ALT/SGPT 15 U/L (7.0-40); AST/SGOT 11 U/L (<34); BILIRUBIN,DIRECT 0.3 MG/DL (<0.4); BILIRUBIN,TOTAL 1.1 MG/DL (0.3-1.2); BLOOD UREA NITROGEN 7 MG/DL (9-23); CALCIUM LEVEL 9.3 MG/DL (8.5-10.1); CARBON DIOXIDE LEVEL 25 MMOL/L (20-31); CHLORIDE LEVEL 107 MMOL/L (98-107); CREATININE FOR GFR 0.48 MG/DL (0.55-1.30); GLOMERULAR FILTRATION RATE > 60.0 (>58); GLUCOSE, FASTING 73 MG/DL (60-100); POTASSIUM SERUM 3.4 MMOL/L (3.5-5.1); SODIUM LEVEL 141 MMOL/L (136-145); TOTAL PROTEIN 6.5 G/DL (5.7-8.2)
[2022-03-20] MEDS ORDERED: ISOVUE-370 76% 100ML VIAL As Ordered ONE (18:05)
[2022-03-20] MEDS ORDERED: NS 1,000 ML IV ONE (19:10)
[2022-03-20 19:23] LABS: VENOUS HCO3 23.2 MEQ/L (23.0-27.0); VENOUS PARTIAL PRESSURE CO2 41.1 mmHg (38.0-50.0); VENOUS PARTIAL PRESSURE O2 50.2 mmHg (30.0-50.0); VENOUS PH 7.369 UNITS (7.330-7.430); VENOUS STANDARD HCO3 22.5 MEQ/L; VENOUS TOTAL CO2 24.4 MEQ/L (24.0-28.0)
[2022-03-20 19:58] LABS: RSV AMPLIFICATION NEGATIVE (NEGATIVE)
[2022-03-20 20:32] VITALS: BP 131/81
== END 2022-03-20 20:45 | disposition home or self-care (01) ==
LOC: M ED 11:25
DX: R53.1 Weakness (principal); R06.09 Other forms of dyspnea; F32.A Depression, unspecified; F41.9 Anxiety disorder, unspecified; G43.909 Migraine, unspecified, not intractable, without status migrainosus; G80.9 Cerebral palsy, unspecified; E28.2 Polycystic ovarian syndrome; J45.909 Unspecified asthma, uncomplicated; E03.9 Hypothyroidism, unspecified; Z90.49 Acquired absence of other specified parts of digestive tract; Z90.710 Acquired absence of both cervix and uterus; Z79.51 Long term (current) use of inhaled steroids; Z80.0 Family history of malignant neoplasm of digestive organs; Z88.2 Allergy status to sulfonamides; Z88.8 Allergy status to other drugs, medicaments and biological substances; K44.9 Diaphragmatic hernia without obstruction or gangrene; Z79.899 Other long term (current) drug therapy
CPT/HCPCS: 71046; 71275; 80048; 80076; 81002; 82803; 85025; 87631; 93005; 96360; 99284; Q9967

== ENCOUNTER → 2022-06-27 | Outpatient (REF) | payer MEDICARE ==
[2022-06-27 16:05] LABS: APPEARANCE, URINE CLEAR (CLEAR); BACTERIA, URINE AUTO 1+ (NEGATIVE); BILIRUBIN, URINE AUTO NEGATIVE (NEGATIVE); BLOOD, URINE BLOOD NEGATIVE (NEGATIVE); COLOR, URINE YELLOW (YELLOW); GLUCOSE, URINE (UA) AUTO NEGATIVE (NEGATIVE); KETONE, URINE AUTO NEGATIVE (NEGATIVE); LEUKOCYTE ESTERASE, URINE AUTO NEGATIVE (NEGATIVE); NITRITE, URINE AUTO NEGATIVE (NEGATIVE); PROTEIN, URINE AUTO NEGATIVE (NEGATIVE); RBC, URINE AUTO 0 /HPF (0-3); SPECIFIC GRAVITY URINE AUTO 1.004 (1.002-1.035); SQUAMOUS EPITHELIAL CELL UR AU 1 /HPF (0-6); UROBILINOGEN, URINE AUTO 0.2 mg/dL (0.0-2.0); WBC, URINE AUTO 0 /HPF (0-3)
== END ==
LOC: M LAB REF 15:28
PROVIDERS: ATTEND Urology
DX: R39.9 Unspecified symptoms and signs involving the genitourinary system (principal)

== ENCOUNTER → 2023-03-06 | Outpatient (REF) | payer MEDICARE, MEDICAID ==
[~2023-03-06] MED LIST changes: -CELE1CAP7 PO; +CELE1CAP99 PO
[2023-03-06 18:36] LABS: PERCENT SATURATION 34.5 % (13.2-45.0)
[2023-03-06 18:37] LABS: FERRITIN 35.9 NG/ML (7.3-270.7)
== END ==
LOC: M LAB REF 16:38
PROVIDERS: ATTEND Internal Medicine
DX: D50.9 Iron deficiency anemia, unspecified (principal)

== ENCOUNTER → 2023-06-12 | Outpatient (REF) | payer MEDICARE, MEDICAID ==
[2023-06-12 19:09] LABS: PERCENT SATURATION 43.9 % (13.2-45.0)
[2023-06-12 19:11] LABS: FERRITIN 48.2 NG/ML (7.3-270.7)
== END ==
LOC: M LAB REF 16:26
PROVIDERS: ATTEND Internal Medicine
DX: D50.9 Iron deficiency anemia, unspecified (principal)

== ENCOUNTER → 2023-08-13 | Outpatient (CLI) | payer MEDICARE, MEDICAID | LOC: M WHC 13:26 | PROVIDERS: ATTEND Internal Medicine | DX: N63.20 Unspecified lump in the left breast, unspecified quadrant (principal); R92.313 Mammographic fatty tissue density, bilateral breasts; R92.2 Inconclusive mammogram | CPT/HCPCS: 76642; 77066; G0279 ==

== ENCOUNTER → 2023-09-08 | Outpatient (REF) | payer MEDICARE, MEDICAID ==
[2023-09-08 19:39] LABS: PERCENT SATURATION 41.2 % (13.2-45.0)
[2023-09-08 19:42] LABS: FERRITIN 55.7 NG/ML (7.3-270.7)
== END ==
LOC: M LAB REF 16:46
PROVIDERS: ATTEND Internal Medicine
DX: D50.9 Iron deficiency anemia, unspecified (principal)

== ENCOUNTER → 2024-02-16 | Outpatient (CLI) | payer MEDICARE, MEDICAID ==
[~2024-02-16] MED LIST changes: +GABA-1172 PO; -GABA-282 PO
== END ==
LOC: M WHC 12:57
PROVIDERS: ATTEND Internal Medicine
DX: N60.02 Solitary cyst of left breast (principal)

== ENCOUNTER → 2024-03-30 | Outpatient (REF) | payer MEDICARE, MEDICAID ==
[2024-03-30 15:31] LABS: PERCENT SATURATION 47.1 % (13.2-45.0)
[2024-03-30 15:34] LABS: FERRITIN 57.6 NG/ML (7.3-270.7)
== END ==
LOC: M LAB REF 13:13
PROVIDERS: ATTEND Internal Medicine
DX: D50.9 Iron deficiency anemia, unspecified (principal)

== ENCOUNTER → 2024-06-04 | Outpatient (CLI) | payer MEDICARE, MEDICAID | LOC: M RAD 12:32 | PROVIDERS: ATTEND Urology | DX: D17.71 Benign lipomatous neoplasm of kidney (principal) ==

== ENCOUNTER → 2025-01-28 | Outpatient (REF) | payer MEDICARE, MEDICAID ==
[2025-01-28 15:42] LABS: IRON (FE) 66.0 UG/DL (50-170); PERCENT SATURATION 26.8 % (13.2-45.0)
[2025-01-28 15:44] LABS: VITAMIN B12 LEVEL 409.0 PG/ML (211-911)
== END ==
LOC: M LAB REF 14:33
PROVIDERS: ATTEND Internal Medicine
DX: D50.9 Iron deficiency anemia, unspecified (principal)